=== PATIENT | male | born 2000 | race Caucasian/White ===

== ENCOUNTER 2018-03-27 19:14 | Observation (INO) | payer OTHER ==
[2018-03-27] MEDS ORDERED: NS 0.9% 1000 ML*IV.FLUID IV ONE (19:37)
[2018-03-27] MEDS ORDERED: Acetaminophen TAB* 325 MG PO ONE (19:38)
--- NOTE | 2018-03-27 19:45 | ED ---
Abdominal Pain/Male - HPI Summary HPI Summary: This patient is a 17 year old M presenting to [facility] with a chief complaint of RLQ abdominal pain intermittently since this morning. The patient rates the pain 6/10 in severity. Patient reports not feeling well for a week, nausea, loss of appetite, body chills, feeling hot leading to diaphoresis, vomiting 2- 3 times over the past week in the morning, sore throat, frontal headache, and decreased urinary output. Patient denies diarrhea. He reports losing 5 pounds recently. Patient plays football and has had no major surgeries. He is not aware of being around other sick people. He has not taken Tylenol or Motrin since this morning, does not take daily medications, and does drink and smoke occasionally. - History of Current Complaint Chief Complaint: EDAbdPain Stated Complaint: RT LOWER ABD PAIN Time Seen by Provider: 03/27/18 19:37 Hx Obtained From: Patient Onset/Duration: Lasting Days, Still Present Timing: Intermittent Severity Initially: Moderate Severity Currently: Moderate Pain Intensity: 6 Pain Scale Used: 0-10 Numeric Location: Discrete At: RLQ Associated Signs And Symptoms: Positive: Urinary Symptoms - Decreased urinary output, Nausea, Vomiting, Other - Sore throat, frontal headache, and left-sided stiff neck pain. Negative: Diarrhea - Allergies/Home Medications Allergies/Adverse Reactions: Allergies Allergy/AdvReac Type Severity Reaction Status Date / Time No Known Allergies Allergy Verified 03/27/18 19:22 Home Medications: Home Medications NK [No Home Medications Reported] 03/27/18 [History Confirmed 03/27/18] PMH/Surg Hx/FS Hx/Imm Hx Endocrine/Hematology History: Denies: Hx Diabetes Respiratory History: Reports: Hx Asthma - When very young Infectious Disease History: No Infectious Disease History: Denies: Traveled Outside the [place] in Last 30 Days - Family History Known Family History: Positive: Cardiac Disease Negative: Diabetes - Social History Occupation: Student Alcohol Use: Weekly Review of Systems Positive: Chills, Skin Diaphoresis Positive: Sore Throat, Other - Left sided stiff neck pain Positive: Abdominal Pain, Vomiting, Nausea, Other - loss of appetite. Negative : Diarrhea Positive: frequency - Decreased urinary output Positive: Headache - Frontal All Other Systems Reviewed And Are Negative: Yes Physical Exam - Summary Physical Exam Summary: GENERAL: Patient is a well-developed and nourished __(M)__ who is lying comfortable in the stretcher. Patient is not in any acute respiratory distress. HEAD AND FACE: Normocephalic EYES: PERRLA, EOMI x 2. EARS: Hearing grossly intact. MOUTH: Oropharynx within normal limits. NECK: Supple, trachea is midline, no adenopathy, no JVD, no carotid bruit. CHEST: Symmetric, no tenderness at palpation LUNGS: Clear to auscultation bilaterally. No wheezing or crackles. CVS: Regular rate and rhythm, S1 and S2 present, no murmurs or gallops appreciated. ABDOMEN: Soft, tenderness to palpation in RLQ without rebound or guarding. Bowel sounds are normal. No abdominal abnormal pulsations. EXTREMITIES: Full ROM in all major joints, no edema, no cyanosis or clubbing. NEURO: Alert and oriented x 3. No acute neurological deficits. Speech is normal and follows commands. No ,meningeal sign on exam SKIN: Dry and warm Triage Information Reviewed: Yes Vital Signs On Initial Exam: Initial Vitals Temp Pulse Resp BP Pulse Ox 102.3 F 103 18 124/95 98 03/27/18 19:17 03/27/18 19:17 03/27/18 19:17 03/27/18 19:17 03/27/18 19:17 Vital Signs Reviewed: Yes Diagnostics - Vital Signs Vital Signs Temp Pulse Resp BP Pulse Ox 03/27/18 19:17 102.3 F 103 18 124/95 98 - Laboratory Result Diagrams: 03/27/18 19:59 03/27/18 19:58 Lab Statement: Any lab studies that have been ordered have been reviewed, and results considered in the medical decision making process. - Radiology Chest X-Ray Radiology Interpretation Completed By: ED Physician - 20:53. No acute process. Pending official report. - CT Abdomen/Pelvis CT CT Interpretation Completed By: Radiologist - 23:25. 1. Mildly dilated appendix with no additional findings of acute appendicitis. 2. Indeterminate splenic focus likely a hemangioma, hamartoma, or lymphangioma. ED Physician has reviewed this imaging report. Abdominal Pain Fem Course/Dx - Course Course Of Treatment: This patient is a 17 year old M presenting to [facility] with a chief complaint of RLQ abdominal pain intermittently since this morning. Workup is remarkable via the CT abdomen/pelvis for 1. Mildly dilated appendix with no additional findings of acute appendicitis. 2. Indeterminate splenic focus likely a hemangioma, hamartoma, or lymphangioma. Labs were remarkable for MCH 32 H, Lymph % (Auto) 9.7 L, [place] % (Auto) 12.4 H, Absolute Lymphs (auto) 0.9, and Absolute Monos (auto) 1.1. I discussed the abdomen/pelvis CT results with the radiologist. I then at 23:45. Consulted with Dr. Joe Charlton, surgery, who recommended amdision to his service and advised us to consult with a hospitalist based on previous symptoms. 00:03. Consult with Dr. Lockwood, hospitalist, who agreed to see him in consultation. I discussed this with the patient, who agreed to this plan. - Diagnoses Provider Diagnoses: Abdominal pain - Provider Notifications Discussed Care Of Patient With: Rickie Tobias - Radiologist Time Discussed With Above Provider: 23:37 Instructed by Provider To: Other - Discussed the abdomen/pelvis CT results Discharge - Sign-Out/Discharge Documenting (check all that apply): Patient Departure - Admit - Discharge Plan Condition: Stable Disposition: ADMITTED TO [facility] - Billing Disposition and Condition Condition: STABLE Disposition: Admitted to [facility] - Attestation Statements Document Initiated by Markibgeorgi: Yes Documenting Scribe: Kenenth Hutton Provider For Whom Scribe is Documenting (Include Credential): Yulisa Garnica MD Scribe Attestation: Kenneth Marie, scribed for Yulisa Garnica MD on 03/28/18 at 0510. Scribe Documentation Reviewed: Yes Provider Attestation: The documentation as recorded by the Kenneth rodriguez accurately reflects the service I personally performed and the decisions made by me, Yulisa Garnica MD Consult Consult: 23:45. Consult with Dr. Joe Charlton, surgery, who advised us to consult with a hospitalist based on previous symptoms. 00:03. Consult with Dr. Lockwood, hospitalist, who agreed to see him in consultation.
[2018-03-27 20:09] LABS: ABS Basophils 0 10^3/ul (0-0.2); ABS Eosinophils 0 10^3/ul (0-0.6); ABS Lymphocytes 0.9 10^3/ul (1.0-4.8); ABS Monocytes 1.1 10^3/ul (0-0.8); ABS Neutrophils 7.1 10^3/ul (1.5-7.7); ABS Nucleated RBC 0 10^3/ul; Eosinophil % 0 % (0-6); Hematocrit 43 % (42-52); Hemoglobin 15.4 g/dl (14.0-18.0); Lymphocyte % 9.7 % (25-47); Mean Corpuscular HGB Conc 35 g/dl (31-36); Mean Corpuscular Hemoglobin 32 pg (27-31); Mean Corpuscular Volume 89 fL (80-94); Mean Platelet Volume 7.5 fL (7.4-10.4); Nucleated Red Blood Cells % 0; Platelet Count 219 10^3/ul (150-450); Red Blood Count 4.88 10^6/ul (4.00-5.40); Red Cell Distribution Width 12 % (10.5-15); White Blood Count 9.1 10^3/ul (3.5-10.8)
[2018-03-27 20:16] LABS: INR 1.32 (0.77-1.02)
[2018-03-27 20:27] LABS: EGFR Non-African American 97.4 (>60)
[2018-03-27] MEDS ORDERED: Ketorolac INJ* 30 MG/ML 1 ML VIAL IV PUSH ONE (20:55)
[2018-03-27] MEDS ORDERED: Ketorolac INJ* 30 MG/ML 1 ML VIAL ONE (20:55)
[2018-03-27] MEDS ORDERED: Iohexol 300* (CONTRAST) 10 ML SDV IV ONE (21:12)
[2018-03-27 22:02] LABS: Urine Appearance Clear; Urine Blood Negative (Negative); Urine Color Yellow; Urine Ketones 1+ (Negative); Urine Protein Negative (Negative); Urine Specific Gravity 1.009 (1.010-1.030); Urine Urobilinogen Negative (Negative)
--- NOTE | 2018-03-27 23:26 | RAD ---
EXAM: CT Abdomen and Pelvis With Intravenous Contrast EXAM DATE/TIME: 03/27/2018 10:49 PM CLINICAL HISTORY: 17 years old, male; Pain; Abdominal pain; Flank; Right lower quadrant (rlq); Additional info: Rlq pain eval for appy TECHNIQUE: Axial computed tomography images of the abdomen and pelvis with intravenous contrast. All CT scans at this facility use at least one of these dose optimization techniques: automated exposure control; mA and/or kV adjustment per patient size (includes targeted exams where dose is matched to clinical indication); or iterative reconstruction. Coronal and sagittal reformatted images were created and reviewed. CONTRAST: 91 ml of omni 300 administered intravenously. COMPARISON: No relevant prior studies available. FINDINGS: Lower thorax: No acute findings. ABDOMEN: Liver: Normal. No mass. Gallbladder and bile ducts: Normal. No calcified stones. No ductal dilation. Pancreas: Normal. No ductal dilation. Spleen: Low attenuating splenic focus measures 1.7 cm (series 2, image 15). No splenomegaly. Adrenals: Normal. No mass. Kidneys and ureters: No renal solid cortical lesions, calculi, or pelvocaliectasis. Stomach and bowel: Incompletely distended grossly normal stomach. Normal caliber small bowel. No colonic masses or segmental wall thickening. Appendix: Mildly dilated appendix measuring 0.8 cm with no wall thickening or adjacent periappendiceal stranding. PELVIS: Bladder: Thin-walled bladder with no focal nodularity, perivesicular stranding, or calcifications. Reproductive: Normal sized prostate. Normal seminal vesicles. ABDOMEN and PELVIS: Intraperitoneal space: Normal. No free air. No significant fluid collection. Bones/joints: No fractures. No suspicious bone lesions. Soft tissues: Normal. No hernia. Vasculature: Normal caliber aorta with no evidence of dissection or rupture. Patent IVC. Lymph nodes: Normal. No enlarged lymph nodes. IMPRESSION: 1. Mildly dilated appendix with no additional findings of acute appendicitis. 2. Indeterminate splenic focus likely a hemangioma, hamartoma, or lymphangioma. To contact [facility] with a general question: [facility] - [phone] For direct physician to physician contact: Physician Hotline - [phone] [facility] ([facility] Facility ID #[id number])
[2018-03-28] MEDS ORDERED: Acetaminophen TAB* 325 MG PO PRN (00:03)
[2018-03-28] MEDS ORDERED: NS 0.9% 1000 ML* 1,000 ML IV SCH (00:15)
[2018-03-28] MEDS ORDERED: D5W 1/2 NS 1000 ML BAG* 1,000 ML IV SCH (01:00)
[2018-03-28 06:24] LABS: ABS Basophils 0 10^3/ul (0-0.2); ABS Eosinophils 0 10^3/ul (0-0.6); ABS Lymphocytes 0.8 10^3/ul (1.0-4.8); ABS Monocytes 0.9 10^3/ul (0-0.8); ABS Nucleated RBC 0 10^3/ul; Eosinophil % 0.1 % (0-6); Hematocrit 41 % (42-52); Hemoglobin 14.3 g/dl (14.0-18.0); Lymphocyte % 11.4 % (25-47); Mean Corpuscular HGB Conc 35 g/dl (31-36); Mean Corpuscular Hemoglobin 31 pg (27-31); Mean Corpuscular Volume 90 fL (80-94); Mean Platelet Volume 7.7 fL (7.4-10.4); Nucleated Red Blood Cells % 0.1; Platelet Count 204 10^3/ul (150-450); Red Blood Count 4.59 10^6/ul (4.00-5.40); Red Cell Distribution Width 12 % (10.5-15); White Blood Count 6.7 10^3/ul (3.5-10.8)
--- NOTE | 2018-03-28 07:23 | CONS ---
CC: Dr. Charlton.* CONSULTATION REPORT: DATE OF CONSULT: 03/28/18 PRIMARY CARE PROVIDER: None locally. REASON FOR CONSULTATION: The patient with suspicion and admission for possibility of appendicitis. Requested consults from Dr. Charlton from Surgery in regards to possibility of other illness and to rule out meningitis. CHIEF COMPLAINT: Abdominal pain. HISTORY OF PRESENT ILLNESS: Camilo Wallace is a 17-year-old [employer] student, who stated that for approximately a week, he has been having abdominal pain, dry cough and sore throat. The patient stated that he developed fever in the past 24 hours. He did vomit twice in the past 7 days, but not recently. He really did not have any bowel movement recently and definitely denies diarrhea. The pain is in right lower quadrant and is worse when he takes a deep breath and when he coughs. He had a sore throat, which is currently better. He also stated that he had severe headache upon presentation to the emergency room today, but after treating with IV fluids and a dose of Toradol, the headache went away completely. He stated that he had many sick contacts at [employer]. The patient is being admitted to the surgical service for possible appendicitis. Once again, Medicine was requested to see the patient to rule out any other illnesses. PAST MEDICAL HISTORY: None. The patient stated that he did have history of intermittent abdominal pain and he underwent extensive GI workup, including ruling out celiac disease and it was negative. ALLERGIES: No known drug allergies. MEDICATIONS: None. SOCIAL HISTORY: The patient denies any smoking. He drinks alcohol rarely. He is an [employer] student. His surrogate are both of his parents and he listed his mother Dottie Wallace, as the person to contact the surrogate. FAMILY HISTORY: Reviewed and noncontributory. REVIEW OF SYSTEMS: On review of systems, please see history of present illness. All the remaining 12 systems were reviewed with the patient and were otherwise negative. PHYSICAL EXAM: Blood pressure of 104/64, heart rate of 84 and regular, respiratory rate 18, oxygen saturation 97% on room air, and temperature 102.3 at admission. General: The patient is a very pleasant 17-year-old male who is in no acute distress. Alert, awake, and oriented x3. HEENT: Head: Atraumatic and normocephalic. Eyes: Pupils are equal and reactive to light and accommodation. Oropharynx with mild vascular injection. Tonsils with normal exudates. Mucosa moist. Neck: Supple. No. JVD, no bruits bilaterally. No adenopathy noted. Respiratory: Clear to auscultation bilaterally. Cardiovascular: Regular rate and rhythm. No murmur. Abdomen: Soft, tender in the right lower quadrant with no guarding. Mild rebound noted, bowel sounds are present in all 4 quadrants. Extremities: There is no edema. Pulses are +2 bilaterally. No clubbing or cyanosis. Evaluation of skin: No ecchymotic areas or rashes noted. Neuro Evaluation: Speech is clear. Cranial nerves II through XII are grossly intact. Motor strength is 5/5 bilaterally. DIAGNOSTIC STUDIES/LAB DATA: Laboratory data shows sodium of 135, potassium of 3.8, chloride 99, carbon dioxide 27, BUN 13, creatinine 0.99. Liver function tests are unremarkable. C-reactive protein 65.3. Procalcitonin 0.1. WBCs of 9.1, hemoglobin of 15.4, hematocrit of 43, and platelets of 219. [place] screen negative, influenza testing negative, group A strep rapid negative. CT of the abdomen and pelvis, impression, "Mildly dilated appendix with no additional findings of acute appendicitis. Indeterminate splenic sulcus likely a hemangioma, hematoma or lymphangioma". The patient's portable chest x-ray read by myself prior to the official radiologist's report shows no evidence of infiltrate, normal cardiac silhouette ". ASSESSMENT AND PLAN: The patient has symptoms of viral syndrome for the past several days and presents with right lower quadrant abdominal pain and CT findings showed mildly dilated appendix. The patient's C-reactive protein is elevated. At this point, the patient has no meningeal signs on evaluation and he is headache free. There is no evidence of significant pharyngitis or tonsillitis. His symptoms in the past several days appeared to be due to viral syndrome. The patient's right lower quadrant abdominal tenderness is suggestive of a possibility of appendicitis. At this point, I do agree with the patient to be admitted to surgical service for further treatment of possibility of appendicitis. We will sign off and we will see the patient on an as needed basis. Thank you very much for allowing me to see the patient in consultation. TIME SPENT: Approximately 55 minutes was spent in the patient's consult, more than half that time was spent [id number] with the patient and patient's family and history and physical taken. [id number]/[facility] #: [id number] YENY
[2018-03-28] MEDS ORDERED: Morphine VIAL* 4 MG/ML VIAL (1 ml vial) IV PRN (08:05)
[2018-03-28] MEDS ORDERED: Ondansetron INJ* 2 MG/ML VIAL IV PRN (08:05)
[2018-03-28] MEDS ORDERED: Ondansetron INJ* 2 MG/ML VIAL ONE (08:06)
[2018-03-28] MEDS ORDERED: Morphine VIAL* 4 MG/ML VIAL (1 ml vial) IV ONE (08:07)
--- NOTE | 2018-03-28 08:49 | RAD ---
INDICATION: Fever and right lower quadrant pain COMPARISON: None TECHNIQUE: PA and lateral views of the chest were obtained. FINDINGS: The heart and mediastinum are normal in size and contour. The lungs are grossly clear. There is no evidence of large pleural effusion. Visualized bones are normal for the patient's age. There is no radiographic evidence of free air beneath the diaphragm IMPRESSION: No radiographic evidence of acute cardiopulmonary disease. R1NF
[2018-03-28] MEDS ORDERED: Sodium Citrate/Citric Acid* 15 ML UDC ONE (09:24)
[2018-03-28] MEDS ORDERED: Bupivacaine 0.25% W/EPI* 10 ML SDV ONE (09:27)
[2018-03-28] MEDS ORDERED: ceFOXitin 2 GM IVPREMIX* 2 GM/50 ML BAG ONE (09:31)
[2018-03-28] MEDS ORDERED: Lidocaine 2% PF * 5 ML VIAL ONE (09:32)
[2018-03-28] MEDS ORDERED: Midazolam* 1 MG/ML 2 ML VIAL (2 MG) ONE (09:32)
[2018-03-28] MEDS ORDERED: fentaNYL* 50 MCG/ML 2 ML VIAL (100 MCG VIAL) ONE (09:32)
[2018-03-28] MEDS ORDERED: Rocuronium* 10 MG/ML VIAL ONE (09:33)
[2018-03-28] MEDS ORDERED: Glycopyrrolate IV* 0.2 MG/ML 1 ML VIAL ONE (10:46)
[2018-03-28] MEDS ORDERED: Neostigmine Methylsulfate* 1 MG/ML 10 ML VIAL (1 mg/ml) ONE (10:46)
[2018-03-28] MEDS ORDERED: Ketorolac INJ* 30 MG/ML 1 ML VIAL IV PRN (10:48)
[2018-03-28] MEDS ORDERED: fentaNYL* 50 MCG/ML 2 ML VIAL (100 MCG VIAL) IV PRN (10:48)
[2018-03-28] MEDS ORDERED: DiMENhydriNATE IV* 50 MG/ML VIAL IV PUSH PRN (10:48)
[2018-03-28] MEDS ORDERED: Naloxone* 0.4 MG/ML 1 ML VIAL IV PRN (10:48)
--- NOTE | 2018-03-28 11:07 | BRIEFOPN ---
Brief Operative Note - Surgery Procedures: OPERATIVE REPORT PRE-OP: Right Lower quadrant abdominal pain POST-OP:Same PROCEDURE:Laparoscopic appendectomy SURGEON: MD Latesha ANESTHESIA:Local with General, Dr. Fajardo ASST:none IVF:1 Liter of crystalloid EBL:min SPECIMEN:appendix DRAIN: none WOUND CLASS:3 COMPLICATIONS: none FINDINGS: Appendix injected, dilated, no suppurative inflammation. Ileum and Cecum normal TO PACU
[2018-03-28 11:50] VITALS: BP 98/75
--- NOTE | 2018-03-28 13:52 | HP ---
CC: [facility] ADMISSION HISTORY AND PHYSICAL: DATE OF ADMISSION: 03/28/18 REASON FOR ADMISSION: Right lower quadrant abdominal pain. HISTORY OF PRESENT ILLNESS: Mr. 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 He states that over the past several days including earlier in the week he had developed some generalized abdominal discomfort with anorexia and occasional nausea without vomiting. He felt that he was getting dehydrated, although he is keeping liquids down. He had no diarrhea or change in bowel and he had no urinary complaints. He does play football for [employer], has been going to practice and working out, but was feeling somewhat fatigued. He had no fevers, shakes or chills however. He also complains of a somewhat of a sore throat and left- sided neck discomfort which has resolved. He did travel with his football team to an away game yesterday, but did not participate. Pain in the right lower quadrant worsened when he talked with his parents, who live in [place], he presented to the emergency room later last night. While in the emergency room, he has noted an initial temperature of 103.9, which subsequently was rechecked and came back at 102. He was hemodynamically stable. He was noted to have right lower quadrant abdominal discomfort. Laboratory workup included a normal white blood cell count without a left shift. Electrolytes BUN and creatinine, lactic acid were all within normal limits. He did have a C- reactive protein of 65. Urinalysis was unremarkable. He underwent a CT scan of the abdomen and pelvis. I did review these images. This shows an appendix, which is mildly dilated without contrast with some mild wall thickening, but no periappendiceal inflammation or stranding. Contrast passed through the cecum into the right colon. There were no other acute findings on the skin. He was seen as well by the hospitalist, who did not feel that he has a significant medical illness, i.e. meningitis or a viral type illness and surgical consultation was obtained. PAST MEDICAL HISTORY: Unremarkable. PAST SURGICAL HISTORY: None. MEDICATIONS: None. ALLERGIES: He has no known drug allergies. SOCIAL HISTORY: He is a college sophomore. He is from [place]. He does not use tobacco or alcohol. He plays football in the [employer]. REVIEW OF SYSTEMS: Otherwise, unremarkable. PHYSICAL EXAMINATION GENERAL: He is a slender male, appears to be in no acute distress. VITAL SIGNS: Temperature 97.4, pulse 85, blood pressure 120/55, respirations 16. HEENT: His sclerae are anicteric. Oral mucosa is dry. His tongue is pink. NECK: His trachea is midline. There is no neck tenderness. There is no adenopathy. LUNGS: Clear to auscultation with normal respiratory effort. HEART: Regular rate and rhythm without murmurs, rubs, or gallops. ABDOMEN: Soft and nondistended. There are no prior surgical incisions. I appreciate no hernias. He has exquisite tenderness in the right lower quadrant with some voluntary guarding and localized peritoneal irritation. There is no generalized peritonitis or rigidity, however. EXTREMITIES: Showed no cyanosis or edema. PSYCHIATRIC: He is awake, alert and oriented x3. He has normal judgment and insight. DIAGNOSTIC STUDIES/LAB DATA: Repeat laboratory eval this morning included a white blood cell count of 6.7. Once again, there is no left shift. DISCUSSION: Right lower quadrant abdominal pain now for 24 hours, which is persistent and consistent with acute appendicitis. His history is somewhat atypical for acute appendicitis with him being sick for the last 4 to 5 days with anorexia and generalized discomfort, but he did have a fever. He has a normal white blood cell count, but does have an elevated C-reactive protein. Urinalysis was unremarkable. Hospitalist consultation has been obtained. They did not feel that he has a significant medical illness. I reviewed in detail the findings on the CT scan and his clinical presentation. While this is an atypical presentation in many ways for acute appendicitis with his level of the discomfort and the findings on the CT scan, which to me appeared to have a thickened appendiceal valve without air or contrast within the appendiceal lumen, I suspect that he does have acute appendicitis. Whether this has been source of his symptoms from the last 4 or 5 days is difficult to explain, but he certainly may have a viral illness in addition, which has led to some appendiceal inflammation or he had a "festering" type of appendicitis, which is now presenting with a more typical right lower quadrant abdominal discomfort. After our discussion, my recommendation is to proceed with a laparoscopic appendectomy today. I do not believe there are any further diagnostic studies to be performed. We discussed surgery, as well as management of this entity with intravenous and oral antibiotics, but I think that he is tender enough and is at low risk for surgical intervention that my recommendation to proceed with the surgery. His parents and the patient agree and would like to proceed with an appendectomy today. IMPRESSION: Acute appendicitis. PLAN: Laparoscopic appendectomy today. The procedure was discussed with the patient and his parents and the risks of, but not limited to, bleeding, infection, intraabdominal abscess formation, injury to peritoneal and retroperitoneal structures, possibility of an open procedure, an abscess, possibility of other indicated surgical procedures that need to be performed depending on the findings. They also understand that this may be abnormal appendix. [id number]/[facility] #: [id number] MTDD
--- NOTE | 2018-03-29 00:37 | OP ---
DATE OF OPERATION: 03/28/18 - ROOM #335 DATE OF : 89 SURGEON: Joe Charlton MD FLIGHT NURSE: None. ANESTHESIOLOGIST: Dr. Dennis. ANESTHESIA: General with local. PRE-OP DIAGNOSIS: Right lower quadrant abdominal pain. POST-OP DIAGNOSES: Right lower quadrant abdominal pain, thick-walled hyperemic appendix. OPERATIVE PROCEDURE: Laparoscopic appendectomy. INDICATIONS: Ms. 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 He had generalized abdominal pain several days prior to that with anorexia and nausea, but no vomiting. He had a fever in the emergency room. The medical workup was unremarkable. The CT scan showed thickened appendix without periappendiceal inflammation. There was no contrast within the appendiceal lumen. The wall was thickened and was felt consistent with acute early appendicitis. On physical exam, he had exquisite tenderness in the right lower quadrant as well. ESTIMATED BLOOD LOSS: Minimal. WOUND CLASSIFICATION: III. COMPLICATIONS: None. DRAINS: None. SPECIMENS: Appendix. FINDINGS: The appendix was thick-walled and dilated without evidence of suppurative inflammation. It was hyperemic. The terminal ileum, cecum, and remainder of laparoscopy appeared to be unremarkable. DESCRIPTION OF PROCEDURE: Written informed consent was obtained, the abdomen was marked with indelible ink and preoperative antibiotics were administered. The patient was taken to the operating room and placed in the supine position. Sequential compression devices and warming blanket were applied. The abdomen was prepped and draped in the usual sterile fashion. A time-out verification was completed. Initially, a small vertical incision was made at the midline just below the umbilicus and the peritoneal cavity was entered under direct vision. A 12-mm blunt port was inserted and the abdomen was insufflated to 15 mmHg. Under direct vision, 5-mm left lower abdominal wall port and a suprapubic port was then placed. There was a small amount of clear fluid in the pelvis. Sigmoid colon was normal. The terminal ileum and the right colon were normal. There was no purulence noted. The gallbladder was unremarkable. The appendix was identified. It was intraperitoneal. It was hyperemic and appeared to be indurated and thick walled and dilated mainly at the mid portion. The base of the appendix was normal with normal caliber and soft and supple. There was no evidence of suppurative inflammation; however, certainly no evidence of perforation or abscess. The mesoappendix was taken sequentially with the LigaSure device down to the base of the appendix. I used a starks load with 30-mm Endo DOMINGA stapler to divide the appendix at the base and this was removed from the abdominal cavity with an Endo Catch bag. Hemostasis was assured. The staple line was intact. All ports removed under direct vision of the camera. The umbilical fascia was closed with interrupted 0 Vicryl suture. The skin at all 3 incisions was approximated with subcuticular 4-0 Vicryl suture. Steri-Strips were applied. The patient tolerated the procedure well, was taken to the recovery room in stable condition. [id number]/[facility] #: [id number] YENY
== END 2018-03-28 12:34 | disposition home or self-care (01) ==
LOC: ED 19:14 → SSU 03-28
PROVIDERS: ADMIT Surgery; ATTEND Surgery
DX: K35.80 Unspecified acute appendicitis (principal); R10.31 Right lower quadrant pain; J02.9 Acute pharyngitis, unspecified; R11.2 Nausea with vomiting, unspecified; R51 Headache
CPT/HCPCS: 36415; 71046; 74177; 80053; 81003; 83605; 84145; 84484; 85025; 85610; 85730; 86140; 86308; 87040; 87651; 88304; 90471; 96374; 99284; A9270-GY; G0008; G0378; J0694; J1885; J2250; J2270; J2405; J2710; J3010; Q9967